=== PATIENT | female | born 1950 | race Caucasian/White ===

== ENCOUNTER 2016-07-30 23:10 | Emergency (ER) | payer OTHER ==
[~2016-07-30] VITALS: Ht 165.1 cm; Wt 77.0 kg
[2016-07-30 23:15] VITALS: BP 163/96; PULSE 68; RESP 18; TEMP 97.9; O2SAT 97
[2016-07-30] MEDS ORDERED: diphenhydrAMINE HCL 50 MG/ML VIAL IV PUSH ONE (23:45)
[2016-07-30] MEDS ORDERED: SODIUM CHLOR 0.9% 1000 ML INJ 1,000 ML IV ONE (23:45)
[2016-07-30] MEDS ORDERED: KETOROLAC TROMETHAMINE 30 MG/ML (IVP) VIAL IV PUSH ONE (23:45)
[2016-07-30] MEDS ORDERED: PROCHLORPERAZINE INJ 10 MG/2 ML VIAL IV PUSH ONE (23:45)
[2016-07-31] MEDS ORDERED: ATEN25TA PO (00:11)
[2016-07-31] MEDS ORDERED: COLE1TAB2 PO (00:11)
[2016-07-31] MEDS ORDERED: TIZA4CAP3 PO (00:11)
[2016-07-31] MEDS ORDERED: GABA800T PO (00:11)
[2016-07-31] MEDS ORDERED: RIZA10TA2 PO (00:11)
[2016-07-31] MEDS ORDERED: LISI-515 PO (00:11)
--- NOTE | 2016-07-31 01:41 | PD ---
HPI Chief Complaint: Headache Time Seen by Provider: 23:35 Travel History International Travel<30 days: No Contact w/Intl Traveler<30days: No Traveled to known affect area: No History of Present Illness HPI Patient is a 65-year-old female comes in complaining of a migraine headache. She says she has history of migraines and was recently started on any new medication that is not helping. She says the pain started this afternoon around 1 PM. She says it is located on the left side of her head. She says this pain is similar to previous headaches. She denies any head injuries. She denies any blurred vision. She denies nausea or vomiting. She denies fever or chills. PFSH Past Medical History Cardiovascular Problems: Yes (HTN) Diabetes: Yes (Diet controlled) Patient Takes Glucophage: No Influenza Vaccination: Yes Past Surgical History Appendectomy: Yes Cholecystectomy: Yes Hysterectomy: Yes Tonsillectomy: Yes Social History Alcohol Use: Yes (social) Tobacco Use: No Substance Use: No Allergies-Medications (Allergen,Severity, Reaction): Coded Allergies: No Known Allergies (Unverified , 07/31/16) Reported Meds & Prescriptions Reported Meds & Active Scripts Active Reported Rizatriptan (Rizatriptan Benzoate) 10 Mg Tab 10 Mg PO DAILY Gabapentin 800 Mg Tab 800 Mg PO DAILY Tizanidine (Tizanidine HCl) 4 Mg Cap 4 Mg PO DAILY Colestipol (Colestipol HCl) 1 Gm Tab 1 Gm PO DAILY Lisinopril 20 Mg Tab 20 Mg PO DAILY Atenolol 25 Mg Tab 25 Mg PO BID Review of Systems Except as stated in HPI: all other systems reviewed are Neg General / Constitutional: No: Fever, Chills Eyes: No: Blurred Vision HENT: Positive: Headaches Cardiovascular: No: Chest Pain or Discomfort Respiratory: No: Shortness of Breath Gastrointestinal: No: Nausea, Vomiting Musculoskeletal: No: Myalgias Skin: No Rash, No Change in Pigmentation Neurologic: No: Weakness, Dizziness Physical Exam Narrative GENERAL: Awake and alert, in no acute distress. SKIN: Focused skin assessment warm/dry. HEAD: Atraumatic. Normocephalic. EYES: Pupils equal and round. No scleral icterus. Extraocular movements intact. ENT: Mucous membranes pink and moist. NECK: Trachea midline. No JVD. CARDIOVASCULAR: Regular rate and rhythm. No murmur appreciated. RESPIRATORY: No accessory muscle use. Clear to auscultation. Breath sounds equal bilaterally. MUSCULOSKELETAL: No obvious deformities. No clubbing. No cyanosis. No edema. NEUROLOGICAL: Awake and alert. No obvious cranial nerve deficits. Motor grossly within normal limits. Normal speech. PSYCHIATRIC: Appropriate mood and affect; insight and judgment normal. Data Data Last Documented VS Vital Signs Date Time Temp Pulse Resp B/P Pulse Ox O2 Delivery O2 Flow Rate FiO2 07/31/16 01:17 18 07/31/16 00:01 97 Room Air 07/30/16 23:15 97.9 68 163/96 Orders Iv Access Insert/Monitor (07/30/16 23:40) Sodium Chlor 0.9% 1000 Ml Inj (Ns 1000 M (07/30/16 23:45) Prochlorperazine Inj (Compazine Inj) (07/30/16 23:45) Diphenhydramine Inj (Benadryl Inj) (07/30/16 23:45) Ketorolac Inj (Toradol Inj) (07/30/16 23:45) MDM Medical Decision Making Medical Screen Exam Complete: Yes Emergency Medical Condition: Yes Differential Diagnosis Migraine headache versus tension headache versus dehydration Narrative Course Patient is a 65-year-old female comes in complaining of a migraine headache. Exam shows no neurologic abnormalities. IV established, patient given IV fluids , Toradol, Compazine, Benadryl. She reports resolution of her headache. Advised drink plenty of fluids at home. Advised to take Tylenol or ibuprofen as needed for pain. Advised follow-up with her doctors. Advised to return to the ED as needed for any worsening symptoms. Diagnosis Primary Impression: Headache Qualified Code: R51 - Acute nonintractable headache, unspecified headache type Patient Instructions: Acute Headache (ED), General Instructions Additional Instructions: Take Tylenol or Ibuprofen as needed for pain. Drink plenty of fluids. Follow up with your doctors. Return to the ED as needed for any worsening symptoms. Disposition: 01 DISCHARGE HOME Condition: Stable Amanda Cruz MD July 31, 2016 01:41
[2016-07-31 01:45] VITALS: BP 148/84; PULSE 68; RESP 18; O2SAT 98
== END 2016-07-31 02:45 | disposition home or self-care (01) ==
LOC: PHED 23:10
DX: R51 Headache (principal); I10 Essential (primary) hypertension; E11.9 Type 2 diabetes mellitus without complications; Z79.899 Other long term (current) drug therapy
CPT/HCPCS: 96361; 96374; 96375; 99283; J0780; J1200; J1885; J7030

== ENCOUNTER 2017-11-26 23:02 | Inpatient (IN) ==
--- NOTE | 2017-11-26 23:42 | ED ---
HPI General Chief complaint: Headache Stated complaint: Headache/Elevated BP Time Seen by Provider: 11/26/17 23:13 Source: patient, EMS, RN notes reviewed and old records reviewed Mode of arrival: EMS History of Present Illness HPI narrative: 67yF presenting with headache and elevated BP. The patient states that she tripped and fell on 11/05, hit her head, was seen in the ED and had a negative CT scan, and reports that her headache initially went away but has returned over the past 1-2 days. She describes "aching" pain to the right parietal region which is constant, moderate, not made better or worse by anything. 2 weeks ago she was also switched from atenolol and lisinopril to atenolol and losartan/ HCTZ due to cough; she says that earlier today she had "shaking in my feet which went up my legs and my hands were shaking too" so she checked her BP and found it to be over 200 systolic. Denies confusion, blurred vision, chest pain, palpitations, or weakness. Related Data Home Medications Medication Instructions Recorded Confirmed aspirin [Aspir-81] 81 mg PO DAILY 11/05/17 11/26/17 atenolol 25 mg PO HS 11/05/17 11/26/17 colestipol 1 g PO DAILY 11/05/17 11/26/17 gabapentin 800 mg PO HS 11/05/17 11/26/17 tizanidine 4 mg PO HS 11/05/17 11/26/17 acetaminophen-codeine 1 tab PO TID PRN 11/26/17 11/26/17 divalproex 250 mg PO BID 11/26/17 11/26/17 sertraline 100 mg PO DAILY 11/26/17 11/26/17 Allergies Allergy/AdvReac Type Severity Reaction Status Date / Time cortisone Allergy Unknown Muscle Pain Verified 11/26/17 23:19 Review of Systems ROS: all other systems reviewed are negative Constitutional Denies fever(s) and Reports headache(s) Eyes Denies blurry vision ENT Denies nasal congestion Cardiovascular Denies chest pain Respiratory Denies cough Gastrointestinal Denies nausea Genitourinary Denies dysuria Musculoskeletal Denies back pain Neurologic Denies confusion Psychiatric Denies confusion PMFSH History History Provided By: Patient Medical History Medical History Age related osteoporosis (Acute) Fibromyalgia (Acute) H/O: hysterectomy (Acute) Migraine (Acute) Neuropathy (Acute) Osteoarthritis (Acute) Peptic ulcer (Acute) Surgical History Surgical History H/O lumpectomy (Acute) Hx of appendectomy (Acute) Hx of cholecystectomy (Acute) Hx of tonsillectomy (Acute) Immunization History Tetanus Immunization: Unsure Hx Influenza Vaccine This Season: No Exam Const General: healthy appearing and no acute distress HENWA Head: normocephalic and atraumatic Face and sinus: normal facial exam Eyes General: appearance normal, both eyes and all related structures Pupils: PERRL Chest Chest: normal inspection of the chest Resp Effort & Inspection: normal respiratory effort Auscultation: no rhonchi and no wheezes Cardio Rate: regular rate Rhythm: regular rhythm Other: BP 140 systolic GI Inspection: non-distended Palpation: soft and nontender Skin General: no rashes or lesions noted Neuro General: alert, awake, oriented x3 and no focal motor deficits Other: GCS 15, pupils 3 mm and reactive bilaterally, speech clear and fluent, no slurred speech or aphasia, no tremor, motor strength and sensation intact to all extremities Psych Affect: normal affect Course Initial Documented Vital Signs Temperature 98 F 11/26/17 23:20 Pulse Rate 81 11/26/17 23:20 Respiratory Rate 18 11/26/17 23:20 Blood Pressure 158/84 H 11/26/17 23:20 Pulse Oximetry 98 11/26/17 23:20 Last Documented Vital Signs Temperature 98 F 11/26/17 23:20 Pulse Rate 81 11/26/17 23:20 Respiratory Rate 18 11/26/17 23:20 Blood Pressure 158/84 H 11/26/17 23:20 Pulse Oximetry 98 11/26/17 23:20 Medical Decision Making MDM Narrative Medical decision making narrative: Assessment: 67yF presenting with headache and elevated BP Plan: EKG Labs CTH Addendum: Patient found to have severe hypokalemia, likely related to recently being started on HCTZ. She will need multiple IV and PO repletions and recheck of lytes; she will also need cardiac monitoring as her electrolyte abnormalities put her at higher risk for arrhythmia. Patient understands and agrees with plan. Case discussed with Dr. Perez of [facility]. Medical Screen Exam Complete: Yes Emergency Medical Condition: Yes Differential Diagnosis Differential Diagnosis: Differential diagnosis includes, but is not limited to: hypertensive urgency, electrolyte abnormality, ICH, closed head injury, post- concussive syndrome Lab Data Result diagrams: 11/26/17 23:55 11/26/17 23:55 Lab Results 11/26/17 11/26/17 Range/Units 23:55 23:55 WBC 6.9 (4.0-11.0) th/mm3 RBC 4.77 (4.00-5.30) mil/mm3 Hgb 14.8 (11.6-15.3) gm/dL Hct 42.5 (35.0-46.0) % MCV 89.0 (80.0-100.0) fL MCH 31.1 (27.0-34.0) pg MCHC 34.9 (32.0-36.0) % RDW 13.8 (11.6-17.2) % Plt Count 263 (150-450) th/mm3 MPV 9.5 (7.0-11.0) fL Neut % (Auto) 47.3 (16.0-70.0) % Lymph % (Auto) 42.0 (9.0-44.0) % [place] % (Auto) 8.7 H (0.0-8.0) % Eos % (Auto) 1.2 (0.0-4.0) % Baso % (Auto) 0.8 (0.0-2.0) % Neut # (Auto) 3.3 (1.8-7.7) th/mm3 Lymph # (Auto) 2.9 (1.0-4.8) th/mm3 [place] # (Auto) 0.6 (0.0-0.9) th/mm3 Eos # (Auto) 0.1 (0.0-0.4) th/mm3 Baso # (Auto) 0.1 (0.0-0.2) th/mm3 WBC Differential . Differential Comment Auto diff final Sodium 138 (136-145) meq/L Potassium 2.8 L* (3.5-5.1) meq/L Chloride 98 (98-107) meq/L Carbon Dioxide 29.6 (21.0-32.0) meq/L Anion Gap 10 (5-15) meq/L BUN 15 (7-18) mg/dL Creatinine 0.90 (0.50-1.00) mg/dL Estimated GFR 62 L (>89) mL/min Random Glucose 116 H (74-106) mg/dL Calcium 9.7 (8.5-10.1) mg/dL Magnesium 1.9 (1.5-2.5) mg/dL Total Bilirubin 0.5 (0.2-1.0) mg/dL AST 26 (15-37) U/L ALT 27 (10-53) U/L Alkaline Phosphatase 66 (45-117) U/L Total Protein 8.1 (6.4-8.2) g/dL Albumin 4.3 (3.4-5.0) g/dL Discharge Plan Discharge Disposition Patient Disposition: 30 Still Patient Discharge Condition Condition: Stable Discharge Details Diagnosis: Acute hypokalemia Physicians Team ED Provider: Nikki Holden Primary Care Provider: Migue Morgan V Rxs /Orders / Referrals /Forms Prescriptions: No Action atenolol 25 mg Tablet 25 mg PO HS RF: 0 aspirin [Aspir-81] 81 mg Tablet,Delayed Release (Dr/Ec) 81 mg PO DAILY RF: 0 gabapentin 800 mg Tablet 800 mg PO HS RF: 0 colestipol 1 gram Tablet 1 g PO DAILY RF: 0 tizanidine 4 mg Capsule 4 mg PO HS RF: 0 divalproex 250 mg Tablet,Delayed Release (Dr/Ec) 250 mg PO BID RF: 0 sertraline 100 mg Tablet 100 mg PO DAILY RF: 0 acetaminophen-codeine 300-30 mg Tablet 1 tab PO TID PRN (Reason: Pain) RF: 0 Status ED Status: With Doctor
[2017-11-27 00:11] LABS: Baso # (Auto) 0.1 th/mm3 (0.0-0.2); Baso % (Auto) 0.8 % (0.0-2.0); Eos # (Auto) 0.1 th/mm3 (0.0-0.4); Eos % (Auto) 1.2 % (0.0-4.0); Hematocrit 42.5 % (35.0-46.0); Hemoglobin 14.8 gm/dL (11.6-15.3); Lymph # (Auto) 2.9 th/mm3 (1.0-4.8); Mean Corpuscular HGB Conc 34.9 % (32.0-36.0); Mean Corpuscular Hemoglobin 31.1 pg (27.0-34.0); Mean Platelet Volume 9.5 fL (7.0-11.0); Mono # (Auto) 0.6 th/mm3 (0.0-0.9); Mono % (Auto) 8.7 % (0.0-8.0); Neut # (Auto) 3.3 th/mm3 (1.8-7.7); Neut % (Auto) 47.3 % (16.0-70.0); Platelet Count 263 th/mm3 (150-450); Red Blood Count 4.77 mil/mm3 (4.00-5.30); Red Cell Distribution Width 13.8 % (11.6-17.2); White Blood Count 6.9 th/mm3 (4.0-11.0)
[2017-11-27 00:26] LABS: Alanine Aminotransferase 27 U/L (10-53); Albumin 4.3 g/dL (3.4-5.0); Alkaline Phosphatase 66 U/L (45-117); Anion Gap 10 meq/L (5-15); Aspartate Aminotransferase 26 U/L (15-37); Blood Urea Nitrogen 15 mg/dL (7-18); Calcium 9.7 mg/dL (8.5-10.1); Carbon Dioxide 29.6 meq/L (21.0-32.0); Chloride 98 meq/L (98-107); Glomerular Filtration Rate 62 mL/min (>89); Glucose,Random 116 mg/dL (74-106); Magnesium 1.9 mg/dL (1.5-2.5); Sodium 138 meq/L (136-145); Total Protein 8.1 g/dL (6.4-8.2)
[2017-11-27 00:29] LABS: Potassium 2.8 meq/L (3.5-5.1)
[2017-11-27] MEDS ORDERED: Mag Sulf 1 gm/100 ml Premix 100 ML IV.SIG ONE (00:35)
--- NOTE | 2017-11-27 01:12 | CT ---
EXAM DATE: 11/27/2017 12:50 AM EDT AGE/SEX: 67 years / Female INDICATIONS: Trauma; head injury 2 weeks ago. CLINICAL DATA: This is the patient's initial encounter. Patient reports that signs and symptoms have been present for 4 - 6 days and indicates a pain score of 6/10. MEDICAL/SURGICAL HISTORY: . Fibromyalgia. Appendectomy. Cholecystectomy. Tonsillectomy. Lumpec rita. RADIATION DOSE: 56.35 CTDI (mGy) COMPARISON: [facility], CT HEAD W/O CONTRAST, 11/05/2017. . TECHNIQUE: CT of the head without contrast. Using automated exposure control and adjustment of the mA and/or kV according to patient size, radiation dose was kept as low as reasonably achievable to ob tain optimal diagnostic quality images. DICOM format image data is available electronically for revi ew and comparison. FINDINGS: Cerebrum: The ventricles are normal for age. No evidence of midline shift, mass lesion, hemorrhage or acute infarction. No extraaxial fluid collections are seen. Posterior Fossa: The cerebellum and brainstem are intact. The 4th ventricle is midline. The cerebe llopontine angle is unremarkable. Extracranial: The visualized portion of the orbits is intact. Skull: The calvaria is intact. No evidence of skull fracture. CONCLUSION: 1. Negative CT Head non contrast. . Electronically signed by: Ze Mendoza MD 11/27/2017 1:11 AM EDT
--- NOTE | 2017-11-27 01:51 | P.HP ---
History of Present Illness Service: [facility] Primary Care Physician: Migue Morgan MD History of Present Illness: 67-year-old female with a past medical history significant for fibromyalgia, neuropathy, chronic back pain, hypertension, hyperlipidemia, and diet- controlled diabetes mellitus presents the emergency department for evaluation of headache and elevated blood pressure. She also describes generalized shaking. Patient reports that she tripped and fell on 11/05, hit her head and was seen in the ED at that time. She had a negative head CT and reports that her headache initially went away but has returned over the past 1-2 days. She also reports that 2 weeks ago her blood pressure medications were switched and hydrochlorothiazide was added. She was not started on potassium supplementation at that time. She denies any chest pain or shortness of breath. No abdominal pain. No nausea/vomiting/or/chills. No lateralizing signs/symptoms Review of Systems All other systems reviewed negative except as stated in HPI [facility] - History History Provided By: Patient - Medical History Medical History: Medical History (Last Updated 11/27/17 @ 01:48 by Felisha Perez MD) Chronic back pain Hx pulmonary embolism Hyperlipidemia Hypertension Age related osteoporosis Fibromyalgia H/O: hysterectomy Migraine Neuropathy Osteoarthritis Peptic ulcer - Surgical History Surgical History: Surgical History (Last Reviewed 11/26/17 @ 23:44 by Nikki Holden DO) H/O lumpectomy Hx of appendectomy Hx of cholecystectomy Hx of tonsillectomy - Family History Family History: Family History (Last Updated 11/27/17 @ 01:48 by Felisha Perez MD) Other Coronary artery disease Diabetes mellitus - Tobacco History Second Hand Smoke Exposure: No Tobacco Use In Past 30 Days: No Smoking Status: Never smoker - Alcohol History How Often Do You Have a Drink Containing Alcohol: Never - Substance Use History Substance History: No History of Abuse - Travel History Recent Travel in the [place] Within the Last 8 Weeks: No Recent Travel Out of the Country Within the Last 8 Weeks: No - Immunization History Tetanus Immunization: Unsure Hx Influenza Vaccine This Season: No Medications and Allergies Active Medications: Active Medications Potassium Chloride (Kcl 20 Meq Premix Inj) 20 meq in 100 mls @ 50 mls/hr IV.SIG Q2H IGOR Stop: 11/27/17 04:44 Allergies Allergy/AdvReac Type Severity Reaction Status Date / Time cortisone Allergy Unknown Muscle Pain Verified 11/26/17 23:19 Home Medications Medication Instructions Recorded Confirmed Type aspirin [Aspir-81] 81 mg PO DAILY 11/05/17 11/26/17 History atenolol 25 mg PO HS 11/05/17 11/26/17 History colestipol 1 g PO DAILY 11/05/17 11/26/17 History gabapentin 800 mg PO HS 11/05/17 11/26/17 History tizanidine 4 mg PO HS 11/05/17 11/26/17 History acetaminophen-codeine 1 tab PO TID PRN 11/26/17 11/26/17 History divalproex 250 mg PO BID 11/26/17 11/26/17 History sertraline 100 mg PO DAILY 11/26/17 11/26/17 History Exam Vital signs: Vital Signs 11/26/17 23:20 Temperature 98 F Pulse Rate 81 Respiratory Rate 18 Blood Pressure 158/84 H Pulse Oximetry 98 Intake & Output 11/26/17 11/26/17 11/27/17 06:59 18:59 06:59 Weight 65.771 kg Narrative: Gen.: No acute distress Head: Normocephalic. Atraumatic. EENT: Pupils equal round and reactive to light. Nose without drainage. Airway intact. Throat without injection. Cardiovascular: Regular rate and rhythm. No murmurs, rubs or gallops. Respiratory: Lungs clear to auscultation bilaterally. No wheezes or rhonchi. Abdomen: Soft, nontender, nondistended. No peritoneal signs. Musculoskeletal: No gross deformities. No edema. Skin: No obvious rashes or erythema. Neuro: Sensory and motor grossly intact. Cranial nerves II through XII grossly intact. Results - Labs CBC & Chem 7: 11/26/17 23:55 11/26/17 23:55 Labs: Laboratory Results - last 24 hr 11/26/17 11/26/17 23:55 23:55 WBC 6.9 RBC 4.77 Hgb 14.8 Hct 42.5 MCV 89.0 MCH 31.1 MCHC 34.9 RDW 13.8 Plt Count 263 MPV 9.5 Neut % (Auto) 47.3 Lymph % (Auto) 42.0 [place] % (Auto) 8.7 H Eos % (Auto) 1.2 Baso % (Auto) 0.8 Neut # (Auto) 3.3 Lymph # (Auto) 2.9 [place] # (Auto) 0.6 Eos # (Auto) 0.1 Baso # (Auto) 0.1 WBC Differential . Differential Comment Auto diff final Sodium 138 Potassium 2.8 L* Chloride 98 Carbon Dioxide 29.6 Anion Gap 10 BUN 15 Creatinine 0.90 Estimated GFR 62 L Random Glucose 116 H Calcium 9.7 Magnesium 1.9 Total Bilirubin 0.5 AST 26 ALT 27 Alkaline Phosphatase 66 Total Protein 8.1 Albumin 4.3 - Imaging Impressions Head CT 11/27/17 00:02 CONCLUSION: 1. Negative CT Head non contrast. . Caprini VTE Risk Assessment Caprini VTE Risk Assessment: Moderate/High Risk (score >= 2) Caprini Risk Assessment Model: Point Value = 1 Point Value = 2 Point Value = 3 Point Value = 5 Age 41-60 Minor surgery BMI > 25 kg/m2 Swollen legs Varicose veins or History of unexplained or recurrent spontaneous Oral contraceptives or hormone replacement Sepsis (< 1 month) Serious lung disease, including pneumonia (< 1 month) Abnormal pulmonary function Acute myocardial infarction Congestive heart failure (< 1 month) History of inflammatory bowel disease Medical patient at bed rest Age 61-74 Arthroscopic surgery Major open surgery (> 45 min) Laparoscopic surgery (> 45 min) Malignancy Confined to bed (> 72 hours) Immobilizing plaster cast Central venous access Age >= 75 History of VTE Family history of VTE Factor V Leiden Prothrombin [id number] Lupus anticoagulant Anticardiolipin antibodies Elevated serum homocysteine Heparin-induced thrombocytopenia Other congenital or acquired thrombophilia Stroke (< 1 month) Elective arthroplasty Hip, pelvis, or leg fracture Acute spinal cord injury (< 1 month) Prophylaxis Regimen: Total Risk Factor Score Risk Level Prophylaxis Regimen 0-1 Low Early ambulation 2 Moderate Order ONE of the following: *Sequential Compression Device (SCD) *Heparin 5000 units SQ BID 3-4 Higher Order ONE of the following medications: *Heparin 5000 units SQ TID *Enoxaparin/Lovenox 40 mg SQ daily (WT < 150 kg, CrCl > 30 mL/min) *Enoxaparin/Lovenox 30 mg SQ daily (WT < 150 kg, CrCl > 10-29 mL/min) *Enoxaparin/Lovenox 30 mg SQ BID (WT < 150 kg, CrCl > 30 mL/min) AND/OR *Sequential Compression Device (SCD) 5 or more Highest Order ONE of the following medications: *Heparin 5000 units SQ TID (Preferred with Epidurals) *Enoxaparin/Lovenox 40 mg SQ daily (WT < 150 kg, CrCl > 30 mL/min) *Enoxaparin/Lovenox 30 mg SQ daily (WT < 150 kg, CrCl > 10-29 mL/min) *Enoxaparin/Lovenox 30 mg SQ BID (WT < 150 kg, CrCl > 30 mL/min) AND *Sequential Compression Device (SCD) Assessment and Plan - Plan Assessment/plan: 1. Hypokalemia Status post IV magnesium and IV/p.o. potassium Repeat BMP in the morning Anticipate discharge after BMP 2. Hypertension/hyperlipidemia Continue home medications once reconciled 3. Diet-controlled diabetes mellitus Monitor blood glucose FEN Diabetic diet Electrolytes: As above Heparin
[2017-11-27] MEDS: Potassium Chlor 20 mEq Premix 20 MEQ/100 ML PIGGYBACK IV.SIG SCH ×2 (02:44→04:40)
[2017-11-27] MEDS: Heparin - SQ 10,000 UNITS/ML Vial SQ SCH ×2 (06:17→13:26)
[2017-11-27 07:55] LABS: Carbon Dioxide 26.3 meq/L (21.0-32.0); Potassium 3.8 meq/L (3.5-5.1)
[2017-11-27] MEDS ORDERED: Sertraline 100 MG Tablet PO SCH (09:00)
[2017-11-27] MEDS ORDERED: Divalproex 250 MG DR Tablet PO SCH (09:00)
[2017-11-27] MEDS ORDERED: COLESTIPOL 1 GM PO SCH (09:00)
--- NOTE | 2017-11-27 14:07 | P.PNADD ---
Addendum to Inpatient Note Reason for Addendum: Additional Documentation Additional information: Nursing denies any deterioration since last night. Patient herself feels much better now. Does not have the tremoring anymore. Vital signs are stable Heart sounds regular rate and rhythm, no murmurs Clear lungs bilaterally, unlabored breathing 5/5 proximal upper and lower extremity strength except for the right lower extremity which is being slightly inhibited secondary to a torn meniscus per The patient. We will discharge her on losartan only with atenolol, to stop her combo hctz/ losartan. To f/u with PCP on BP and K+ level. Patient has met maximal benefit from hospitalization is clinically stable for discharge.
[2017-11-27] MEDS ORDERED: Atenolol 25 MG Tablet PO SCH (21:00)
[2017-11-27] MEDS ORDERED: Gabapentin 400 MG Capsule PO SCH (21:00)
== END 2017-11-27 15:30 | disposition home or self-care (01) ==
LOC: NEDA 23:02 → NEPE 23:02 → NEPHCDU 11-27 02:55
PROVIDERS: ADMIT Hospitalist; ATTEND Hospitalist

== ENCOUNTER 2018-01-02 17:40 | Observation (INO) ==
--- NOTE | 2018-01-02 20:24 | XR ---
EXAM DATE: 01/02/2018 7:57 PM EDT AGE/SEX: 67 years / Female INDICATIONS: Chest pain. CLINICAL DATA: This is the patient's initial encounter. Patient reports that signs and symptoms have been present for 1 day and indicates a pain score of 2/10. MEDICAL/SURGICAL HISTORY: . Hypertension. Osteoporosis. Chronic back pain. Fibromyalgia. Hyperl ipidemia. Neuropathy. Osteoarthritis. Peptic ulcer . Hysterectomy. Appendectomy. Cholecystectomy. Lupe mpectomy. Tonsillectomy. COMPARISON: No prior exams available for comparison. FINDINGS: Left basilar atelectasis is noted. There is elevation of the right hemidiaphragm. The heart is top no rmal in size. The pulmonary vascular pattern is normal. The lungs are otherwise clear. CONCLUSION: 1. Left basilar atelectasis. 2. Elevation of the right hemidiaphragm. Electronically signed by: Garcia Duarte MD 01/02/2018 8:23 PM EDT
[2018-01-02 20:44] LABS: Baso # (Auto) 0.1 th/mm3 (0.0-0.2); Baso % (Auto) 0.9 % (0.0-2.0); Eos # (Auto) 0.1 th/mm3 (0.0-0.4); Eos % (Auto) 1.5 % (0.0-4.0); Lymph # (Auto) 2.3 th/mm3 (1.0-4.8); Lymph % (Auto) 35.7 % (9.0-44.0); Mean Corpuscular HGB Conc 33.3 % (32.0-36.0); Mean Corpuscular Hemoglobin 30.5 pg (27.0-34.0); Mean Corpuscular Volume 91.7 fL (80.0-100.0); Mean Platelet Volume 9.4 fL (7.0-11.0); Mono # (Auto) 0.3 th/mm3 (0.0-0.9); Mono % (Auto) 5.3 % (0.0-8.0); Neut # (Auto) 3.7 th/mm3 (1.8-7.7); Neut % (Auto) 56.6 % (16.0-70.0); Platelet Count 268 th/mm3 (150-450); Red Blood Count 4.58 mil/mm3 (4.00-5.30); Red Cell Distribution Width 14.1 % (11.6-17.2); White Blood Count 6.5 th/mm3 (4.0-11.0)
[2018-01-02 20:57] LABS: Alanine Aminotransferase 37 U/L (10-53); Albumin 3.9 g/dL (3.4-5.0); Anion Gap 10 meq/L (5-15); Aspartate Aminotransferase 27 U/L (15-37); Blood Urea Nitrogen 15 mg/dL (7-18); Calcium 9.3 mg/dL (8.5-10.1); Carbon Dioxide 24.6 meq/L (21.0-32.0); Chloride 105 meq/L (98-107); Glomerular Filtration Rate 74 mL/min (>89); Glucose,Random 97 mg/dL (74-106); Sodium 140 meq/L (136-145)
[2018-01-02 21:01] LABS: Alkaline Phosphatase 73 U/L (45-117); Total Protein 7.8 g/dL (6.4-8.2)
--- NOTE | 2018-01-02 21:04 | ED ---
HPI General Chief complaint: Medical Clearance Stated complaint: edema Time Seen by Provider: 01/02/18 18:46 Source: patient Mode of arrival: ambulatory Limitations: no limitations History of Present Illness HPI narrative: 67-year-old female came to the emergency room with history of bilateral leg swelling for past 2 weeks. Patient says that the swelling has progressively been worsening and hence she came to the ER. She has also been experiencing bilateral leg pains right more than the left. Upon asking patient says that she has been experiencing on and off chest pain which is more on the left side radiating to her axilla. Last episode was last night. No aggravating or relieving symptoms identified either for the chest pain or the leg pain. The leg pain is mostly in her calves. Patient has a past history of DVT in 1970s secondary to oral contraceptives. Patient is not on any blood thinners currently. Patient had a stress test 3 years ago which was within normal limits. There is a strong family history of coronary artery disease. Patient currently is chest pain-free. Vital signs are stable. She bought compression stockings for her legs. She has been keeping her legs elevated. Onset (ago): week(s) (2) Location: chest and lower extremity Pain Consistency: intermittent Relieving factors: none Exacerbating factors: none Related Data Home Medications Medication Instructions Recorded Confirmed aspirin [Aspir-81] 81 mg PO DAILY 11/05/17 01/02/18 atenolol 50 mg PO HS 11/05/17 01/03/18 colestipol 1 g PO DAILY 11/05/17 01/02/18 gabapentin 800 mg PO HS 11/05/17 01/02/18 tizanidine 4 mg PO HS 11/05/17 01/02/18 acetaminophen-codeine 1 tab PO TID PRN 11/26/17 01/02/18 sertraline 100 mg PO DAILY 11/26/17 01/02/18 irbesartan-hydrochlorothiazide 1 tab PO DAILY 01/03/18 01/03/18 Previous Rx's Medication Instructions Recorded rivaroxaban [Xarelto] See Label Instructions .ROUTE 01/03/18 .COMPLEX #1 dosepack Allergies Allergy/AdvReac Type Severity Reaction Status Date / Time cortisone Allergy Unknown Muscle Pain Verified 12/09/17 22:39 Review of Systems ROS: all other systems reviewed are negative Cardiovascular Reports chest pain Musculoskeletal Reports system reviewed and no additional complaints, except as docu [facility] Medical History Medical History Chronic back pain (Acute) Hx pulmonary embolism (Acute) Hyperlipidemia (Acute) Hypertension (Acute) H/O: hysterectomy (Acute) Migraine (Acute) Age related osteoporosis (Acute) Fibromyalgia (Acute) Neuropathy (Acute) Osteoarthritis (Acute) Peptic ulcer (Acute) Surgical History Surgical History H/O lumpectomy (Acute) Hx of tonsillectomy (Acute) Hx of cholecystectomy (Acute) Hx of appendectomy (Acute) Family History Family History Other Coronary artery disease Diabetes mellitus Immunization History Tetanus Immunization: <5 Years Exam Narrative Exam Narrative: GENERAL: Awake, alert, no obvious distress. SKIN: Focused skin assessment warm/dry. HEAD: Atraumatic. Normocephalic. EYES: Pupils equal and round. No scleral icterus. No injection or drainage. ENT: No nasal bleeding or discharge. Mucous membranes pink and moist. NECK: Trachea midline. No JVD. CARDIOVASCULAR: Regular rate and rhythm. No murmur appreciated. RESPIRATORY: No accessory muscle use. Clear to auscultation. Breath sounds equal bilaterally. GASTROINTESTINAL: Abdomen soft, non-tender, nondistended. Hepatic and splenic margins not palpable. MUSCULOSKELETAL: No obvious deformities. No clubbing. No cyanosis. 2+ edema. NEUROLOGICAL: Awake and alert. No obvious cranial nerve deficits. Motor grossly within normal limits. Normal speech. PSYCHIATRIC: Appropriate mood and affect; insight and judgment normal. Course Initial Documented Vital Signs Temperature 98.5 F 01/02/18 17:48 Pulse Rate 75 01/02/18 17:48 Respiratory Rate 16 01/02/18 17:48 Blood Pressure 173/82 H 01/02/18 17:48 Pulse Oximetry 96 01/02/18 17:48 Last Documented Vital Signs Temperature 98.4 F 01/03/18 15:27 Pulse Rate 86 01/03/18 15:27 Respiratory Rate 16 01/03/18 15:27 Blood Pressure 158/94 H 01/03/18 15:27 Pulse Oximetry 95 01/03/18 08:00 Medical Decision Making [facility] Narrative Medical decision making narrative: 9:02 PM awaiting for the blood test result. I have ordered ultrasound for bilateral lower extremities to rule out DVT since patient has a significant history of DVT and PE in the past. Patient told me that she had a bad reaction to the diuretic in the past with her potassium going down to 2.0. Based on this I have not given her any diuretics at this point for her edema. However for the intermittent chest pain and risk factors I will admit her to the chest pain center if the DVT workup is negative. This has been explained to the patient and she understands. 10:59 PM blood test results are back and within normal limit. Ultrasound shows a right popliteal nonocclusive thrombus. I have ordered CT pulmonary angiogram given her chest pain history. Patient has been updated about the condition, test results and the plan. 12:[address] pulmonary angiogram does not show any PE. Patient has been admitted to the chest pain center to rule out ACS given her risk factors. Patient has been started on Xarelto. Medical Screen Exam Complete: Yes Emergency Medical Condition: Yes Differential Diagnosis Differential Diagnosis: DVT, PE, ACS Lab Data Result diagrams: 01/02/18 20:00 01/02/18 20:00 Lab Results 01/02/18 01/02/18 01/03/18 Range/Units 20:00 20:00 01:24 WBC 6.5 (4.0-11.0) th/mm3 RBC 4.58 (4.00-5.30) mil/mm3 Hgb 14.0 (11.6-15.3) gm/dL Hct 42.0 (35.0-46.0) % MCV 91.7 (80.0-100.0) fL MCH 30.5 (27.0-34.0) pg MCHC 33.3 (32.0-36.0) % RDW 14.1 (11.6-17.2) % Plt Count 268 (150-450) th/mm3 MPV 9.4 (7.0-11.0) fL Neut % (Auto) 56.6 (16.0-70.0) % Lymph % (Auto) 35.7 (9.0-44.0) % [place] % (Auto) 5.3 (0.0-8.0) % Eos % (Auto) 1.5 (0.0-4.0) % Baso % (Auto) 0.9 (0.0-2.0) % Neut # (Auto) 3.7 (1.8-7.7) th/mm3 Lymph # (Auto) 2.3 (1.0-4.8) th/mm3 [place] # (Auto) 0.3 (0.0-0.9) th/mm3 Eos # (Auto) 0.1 (0.0-0.4) th/mm3 Baso # (Auto) 0.1 (0.0-0.2) th/mm3 WBC Differential . Differential Comment Auto diff final Sodium 140 (136-145) meq/L Potassium 4.0 (3.5-5.1) meq/L Chloride 105 (98-107) meq/L Carbon Dioxide 24.6 (21.0-32.0) meq/L Anion Gap 10 (5-15) meq/L BUN 15 (7-18) mg/dL Creatinine 0.77 (0.50-1.00) mg/dL Estimated GFR 74 L (>89) mL/min Random Glucose 97 (74-106) mg/dL Calcium 9.3 (8.5-10.1) mg/dL Total Bilirubin 0.5 (0.2-1.0) mg/dL AST 27 (15-37) U/L ALT 37 (10-53) U/L Alkaline Phosphatase 73 (45-117) U/L Total Creatine Kinase 204 H (26-192) U/L CK-MB (CK-2) 4.5 H (0.5-3.6) ng/mL CK-MB (CK-2) % 2.2 (0.0-4.0) % Troponin I Less than 0.02 L Less than 0.02 L (0.02-0.05) ng/mL Total Protein 7.8 (6.4-8.2) g/dL Albumin 3.9 (3.4-5.0) g/dL 01/03/18 Range/Units 03:40 WBC (4.0-11.0) th/mm3 RBC (4.00-5.30) mil/mm3 Hgb (11.6-15.3) gm/dL Hct (35.0-46.0) % MCV (80.0-100.0) fL MCH (27.0-34.0) pg MCHC (32.0-36.0) % RDW (11.6-17.2) % Plt Count (150-450) th/mm3 MPV (7.0-11.0) fL Neut % (Auto) (16.0-70.0) % Lymph % (Auto) (9.0-44.0) % [place] % (Auto) (0.0-8.0) % Eos % (Auto) (0.0-4.0) % Baso % (Auto) (0.0-2.0) % Neut # (Auto) (1.8-7.7) th/mm3 Lymph # (Auto) (1.0-4.8) th/mm3 [place] # (Auto) (0.0-0.9) th/mm3 Eos # (Auto) (0.0-0.4) th/mm3 Baso # (Auto) (0.0-0.2) th/mm3 WBC Differential Differential Comment Sodium (136-145) meq/L Potassium (3.5-5.1) meq/L Chloride (98-107) meq/L Carbon Dioxide (21.0-32.0) meq/L Anion Gap (5-15) meq/L BUN (7-18) mg/dL Creatinine (0.50-1.00) mg/dL Estimated GFR (>89) mL/min Random Glucose (74-106) mg/dL Calcium (8.5-10.1) mg/dL Total Bilirubin (0.2-1.0) mg/dL AST (15-37) U/L ALT (10-53) U/L Alkaline Phosphatase (45-117) U/L Total Creatine Kinase 208 H (26-192) U/L CK-MB (CK-2) 4.2 H (0.5-3.6) ng/mL CK-MB (CK-2) % 2.0 (0.0-4.0) % Troponin I Less than 0.02 L (0.02-0.05) ng/mL Total Protein (6.4-8.2) g/dL Albumin (3.4-5.0) g/dL Imaging Data Radiologist's impression: Chest X-Ray 01/02/18 19:57 CONCLUSION: 1. Left basilar atelectasis. 2. Elevation of the right hemidiaphragm. Venous Doppler Study 01/02/18 19:58 CONCLUSION: 1. Nonocclusive thrombus within the right popliteal vein. Chest CTA 01/02/18 22:53 CONCLUSION: 1. Bibasilar patchy opacities could be atelectasis or infiltrates. 2. No evidence for pulmonary embolism. 3. Minimal coronary artery calcifications. Myocardial Perfusion Scan Nuc Med 01/03/18 00:00 CONCLUSION: 1. Negative examination. ECG Data Attestation: I personally reviewed and interpreted this ECG as follows: Interpretation: Twelve-lead EKG was reviewed by me. Normal sinus rhythm, normal axis, nonspecific ST-T wave changes. Heart rate of 58 bpm. Discharge Plan Discharge Disposition Patient Disposition: 30 Still Patient Discharge Condition Condition: Good Discharge Order Discharge Orders: Discharge Order (Routine); Ordered 01/03/18 Ordered By: Nikki Woodard Discharge Details Diagnosis: Atypical chest pain, Thrombosis of right popliteal vein Physicians Team ED Provider: Catherine Lai Primary Care Provider: Migue Morgan V Attending Provider: Melvin Garcia Status ED Status: Left Department Discharge Information Discharge Date/Time: 01/03/18 02:14
--- NOTE | 2018-01-02 21:07 | US ---
EXAM DATE: 01/02/2018 7:58 PM EDT AGE/SEX: 67 years / Female INDICATIONS: Bilateral leg swelling. CLINICAL DATA: This is the patient's initial encounter. Patient reports that signs and symptoms have been present for 4 - 6 days and indicates a pain score of 4/10. MEDICAL/SURGICAL HISTORY: Hypertension. Chronic back pain. Fibromyalgia. Hyperlipidemia. Migrai ne. Neuropathy. Ostearthritis. History of pulmonary embolism. Hysterectomy. Appendectomy. Cholecys tectomy. Lumpectomy. COMPARISON: [facility] [place] VENOUS DOPPLER LEG BI, 12/09/2017. . TECHNIQUE: Venous ultrasound of both lower extremities was performed from the inguinal ligament to t he proximal calf. Real-time, color Doppler and spectral tracing, compression and augmentation techni ques were used. FINDINGS: Right Leg: Nonocclusive thrombus is noted within the right popliteal vein. Normal color flow is note d within the right iliac, common femoral, superficial femoral, peroneal and posterior tibial veins. Left Leg: Normal compression of the deep venous system from the inguinal region to the proximal calf . No echogenic clot is seen. Normal response of the venous system to augmentation and respiration. Other: None. CONCLUSION: 1. Nonocclusive thrombus within the right popliteal vein. Electronically signed by: Garcia Duarte MD 01/02/2018 9:05 PM EDT
--- NOTE | 2018-01-02 23:38 | CT ---
EXAM DATE: 01/02/2018 11:09 PM EDT AGE/SEX: 67 years / Female INDICATIONS: Left sided chest pain, shortness of breath. CLINICAL DATA: This is the patient's initial encounter. Patient reports that signs and symptoms have been present for 1 day and indicates a pain score of 8/10. MEDICAL/SURGICAL HISTORY: Hypertension. Osteoporosis. Pulmonary Embolus. Peptic ulcer. Appendect karen. Cholecystectomy. Tonsillectomy. RADIATION DOSE: 10.37 CTDI (mGy) COMPARISON: No prior exams available for comparison. TECHNIQUE: Volumetric scanning was performed using a multi-row detector CT scanner during bolus infu hira of 72 ml Omnipaque 350 (iohexol) nonionic water-soluble contrast as a single exam dose. The ava a was post processed with a variety of visualization algorithms including full volume maximum intensi ty projection and sliding thin slab reformation. Using automated exposure control and adjustment of t he mA and/or kV according to patient size, radiation dose was kept as low as reasonably achievable to obtain optimal diagnostic quality images. DICOM format image data is available electronically for r eview and comparison. FINDINGS: Pulmonary Arteries: No filling defects are seen in the pulmonary arteries out to the subsegmental ve ssels. The left and right pulmonary arteries are normal in diameter. Lung: Patchy densities in the lower lobes. Effusion: None. Mediastinum: No evidence of mediastinal or hilar adenopathy. Minimal coronary artery calcifications. Other: The axilla is unremarkable. CONCLUSION: 1. Bibasilar patchy opacities could be atelectasis or infiltrates. 2. No evidence for pulmonary embolism. 3. Minimal coronary artery calcifications. Electronically signed by: Ebenezer Atkins MD 01/02/2018 11:37 PM EDT
[2018-01-03] MEDS ORDERED: Rivaroxaban 15 MG Tablet PO ONE (00:30)
[2018-01-03 01:51] LABS: Creatine Kinase 204 U/L (26-192)
[2018-01-03 02:03] LABS: CKMB Percent 2.2 % (0.0-4.0); Creatine Kinase MB 4.5 ng/mL (0.5-3.6)
[2018-01-03 04:04] LABS: Creatine Kinase 208 U/L (26-192)
[2018-01-03 04:16] LABS: Creatine Kinase MB 4.2 ng/mL (0.5-3.6)
[2018-01-03] MEDS: Acetaminophen 325 MG Tablet PO PRN ×2 (08:19→13:31)
[2018-01-03 08:54] VITALS: O2SAT 95
[2018-01-03] MEDS ORDERED: Sertraline 100 MG Tablet PO SCH (10:00)
--- NOTE | 2018-01-03 10:42 | P.HPCA ---
History of Present Illness Primary Care Physician: Migue Morgan MD Chief Complaint: Bilater lower leg edema History of Present Illness: 67 year old female with history of diabetes, hypertension, hyperlipidemia, fibromyalgia, and chronic back pain presents emergency room for further evaluation of persistent bilateral lower leg edema. Onset months. Progressively becoming worse. Also noted intermittent redness with a right foot "blister a couple days ago." Upon further discussion reports intermittent, nonexertional chest pain. Onset months. Location left anterior chest and left auxiliary area. Areas vary, not always occurring together. Characterized as quick, squeezing. No associated symptoms of nausea, vomiting, dyspnea, or diaphoresis. Duration seconds. No precipitation or relieving factors. Occurrence varies, rarely occurring more than once daily. No recent illness, injury, or illness. Past cardiac testing None Social history Known diabetes (diet controlled), hypertension, and hyperlipidemia. No known coronary artery disease. Lifelong non-smoker. No alcohol no recreational drug use. Single. Lives with a roommate. Requires use of cane or walker for ambulation. - Diagnosis (1) Atypical chest pain (2) Hyperlipidemia (3) Hypertension (4) Thrombosis of right popliteal vein PMFSH - History History Provided By: Patient - Medical History Medical History: Medical History (Last Reviewed 01/03/18 @ 10:43 by JOSIAH Novak) Chronic back pain (Acute) Hx pulmonary embolism (Acute) Hyperlipidemia (Chronic) Hypertension (Chronic) H/O: hysterectomy (Acute) Migraine (Acute) Age related osteoporosis Fibromyalgia Neuropathy Osteoarthritis Peptic ulcer - Surgical History Surgical History: Surgical History (Last Reviewed 01/03/18 @ 10:43 by JOSIAH Novak) H/O lumpectomy (Acute) Hx of tonsillectomy (Acute) Hx of cholecystectomy (Acute) Hx of appendectomy (Acute) - Family History Family History: Family History (Last Reviewed 01/02/18 @ 21:01 by Catherine Lai MD) Other Coronary artery disease Diabetes mellitus - Tobacco History Second Hand Smoke Exposure: No Tobacco Use In Past 30 Days: No Smoking Status: Never smoker - Alcohol History How Often Do You Have a Drink Containing Alcohol: Never - Substance Use History Substance History: No History of Abuse - Travel History Recent Travel in the [place] Within the Last 8 Weeks: No Recent Travel Out of the Country Within the Last 8 Weeks: No - Immunization History Tetanus Immunization: <5 Years Medications and Allergies Active Medications: Active Medications Acetaminophen (Tylenol) 650 mg PO Q4H PRN PRN Reason: HEADACHE Last Admin: 01/03/18 08:19 Dose: 650 mg Non-Formulary Medication (Irbesartan-Hydrochlorothiazide [Irbesartan- Hydrochlorothiazide]) 1 tab PO DAILY [facility] Sertraline HCl (Zoloft) 100 mg PO DAILY IGOR Sodium Chloride (Ns Flush) 2 ml IV.FLUSH UNSCH PRN PRN Reason: FLUSH AFTER USING IV ACCESS Sodium Chloride (Ns Flush) 2 ml IV.FLUSH BID IGOR Last Admin: 01/03/18 08:20 Dose: 2 ml Sodium Chloride (Ns Flush) 2 ml IV.FLUSH PRN PRN PRN Reason: FLUSH AFTER USING IV ACCESS Allergies Allergy/AdvReac Type Severity Reaction Status Date / Time cortisone Allergy Unknown Muscle Pain Verified 12/09/17 22:39 Home Medications Medication Instructions Recorded Confirmed Type aspirin [Aspir-81] 81 mg PO DAILY 11/05/17 01/02/18 History atenolol 50 mg PO HS 11/05/17 01/03/18 History colestipol 1 g PO DAILY 11/05/17 01/02/18 History gabapentin 800 mg PO HS 11/05/17 01/02/18 History tizanidine 4 mg PO HS 11/05/17 01/02/18 History acetaminophen-codeine 1 tab PO TID PRN 11/26/17 01/02/18 History sertraline 100 mg PO DAILY 11/26/17 01/02/18 History irbesartan-hydrochlorothiazide 1 tab PO DAILY 01/03/18 01/03/18 History Exam Vital signs: Vital Signs 01/02/18 17:48 01/02/18 19:10 01/02/18 20:21 Temperature 98.5 F Pulse Rate 75 68 Respiratory Rate 16 20 Blood Pressure 173/82 H 156/74 H Pulse Oximetry 96 96 96 01/02/18 23:00 01/03/18 02:17 01/03/18 03:44 Temperature 98.1 F 98.2 F Pulse Rate 62 72 54 L Respiratory Rate 20 18 16 Blood Pressure 137/75 164/95 H 150/78 H Pulse Oximetry 95 96 01/03/18 07:28 01/03/18 08:00 Temperature 98.0 F Pulse Rate 60 68 Respiratory Rate 16 Blood Pressure 173/79 H Pulse Oximetry 95 Intake & Output 01/02/18 01/03/18 01/03/18 18:59 06:59 18:59 Weight 81.647 kg 81.647 kg Other: # Voids 1 Date of Last Bowel Movement 01/02/18 Weight On Admission 81.647 kg Narrative: GENERAL: Alert WN, WD, NAD, pleasant, , overweight female HEAD: NC, AT EYES: Sclera clear, conjunctiva without injection, pupils equal and round ENT: Mucous membranes pink and moist, no nasal discharge or bleeding NECK: Supple, no masses, trachea midline CV: RRR, without murmur, rub, gallop, no JVD, S1-S2 no S3-S4. RESP: Clear lungs throughout bilateral, no crackles, wheeze, rhonchi, symmetrical chest rise, nonlabored, able to speak in full sentences ABD: Soft, NT, ND, no masses, positive bowel tones BACK: Scoliosis EXT: Pulses +1x4, +2 pitting bilateral lower extremity edema midcalf to bilateral feet, no open areas, bilateral venous statis MS: Normal tone x4 extremities, nontender, no obvious deformities, full range of motion NEURO: CN II through CN XII grossly intact, motor strength 5/5 PSYCH: A+O x3, pleasant affect, appropriate speech, appropriate mood and affect , insight and judgment SKIN: Normal turgor, normal texture, no lesions, no rashes, brisk cap refill, even hair distribution Results 01/02/18 20:00 01/02/18 20:00 Cardiac Enzymes 01/02/18 01/03/18 01/03/18 Range/Units 20:00 01:24 03:40 AST 27 (15-37) U/L CK-MB (CK-2) 4.5 H 4.2 H (0.5-3.6) ng/mL Troponin I Less than 0.02 L Less than 0.02 L Less than 0.02 L (0.02-0.05) ng/mL CBC 01/02/18 Range/Units 20:00 WBC 6.5 (4.0-11.0) th/mm3 RBC 4.58 (4.00-5.30) mil/mm3 Hgb 14.0 (11.6-15.3) gm/dL Hct 42.0 (35.0-46.0) % Plt Count 268 (150-450) th/mm3 Neut # (Auto) 3.7 (1.8-7.7) th/mm3 Lymph # (Auto) 2.3 (1.0-4.8) th/mm3 [place] # (Auto) 0.3 (0.0-0.9) th/mm3 Eos # (Auto) 0.1 (0.0-0.4) th/mm3 Baso # (Auto) 0.1 (0.0-0.2) th/mm3 Comprehensive Metabolic Panel 01/02/18 Range/Units 20:00 Sodium 140 (136-145) meq/L Potassium 4.0 (3.5-5.1) meq/L Chloride 105 (98-107) meq/L Carbon Dioxide 24.6 (21.0-32.0) meq/L BUN 15 (7-18) mg/dL Creatinine 0.77 (0.50-1.00) mg/dL Calcium 9.3 (8.5-10.1) mg/dL AST 27 (15-37) U/L ALT 37 (10-53) U/L Alkaline Phosphatase 73 (45-117) U/L Total Protein 7.8 (6.4-8.2) g/dL Albumin 3.9 (3.4-5.0) g/dL Intake and Output 01/02/18 01/03/18 01/03/18 22:59 06:59 14:59 Other: # Voids 1 Date of Last Bowel Movement 01/02/18 Weight 81.647 kg 81.647 kg Weight On Admission 81.647 kg - Imaging and Cardiology Imaging: Impressions Chest X-Ray 01/02/18 19:57 CONCLUSION: 1. Left basilar atelectasis. 2. Elevation of the right hemidiaphragm. Venous Doppler Study 01/02/18 19:58 CONCLUSION: 1. Nonocclusive thrombus within the right popliteal vein. Chest CTA 01/02/18 22:53 CONCLUSION: 1. Bibasilar patchy opacities could be atelectasis or infiltrates. 2. No evidence for pulmonary embolism. 3. Minimal coronary artery calcifications. EKG interpretations - EKG EKG results cardiology: sinus rhythm, normal axis, normal QRS, normal ST/T Caprini VTE Risk Assessment Caprini VTE Risk Assessment: Moderate/High Risk (score >= 2) Caprini Risk Assessment Model: Point Value = 1 Point Value = 2 Point Value = 3 Point Value = 5 Age 41-60 Minor surgery BMI > 25 kg/m2 Swollen legs Varicose veins or History of unexplained or recurrent spontaneous Oral contraceptives or hormone replacement Sepsis (< 1 month) Serious lung disease, including pneumonia (< 1 month) Abnormal pulmonary function Acute myocardial infarction Congestive heart failure (< 1 month) History of inflammatory bowel disease Medical patient at bed rest Age 61-74 Arthroscopic surgery Major open surgery (> 45 min) Laparoscopic surgery (> 45 min) Malignancy Confined to bed (> 72 hours) Immobilizing plaster cast Central venous access Age >= 75 History of VTE Family history of VTE Factor V Leiden Prothrombin [id number] Lupus anticoagulant Anticardiolipin antibodies Elevated serum homocysteine Heparin-induced thrombocytopenia Other congenital or acquired thrombophilia Stroke (< 1 month) Elective arthroplasty Hip, pelvis, or leg fracture Acute spinal cord injury (< 1 month) Prophylaxis Regimen: Total Risk Factor Score Risk Level Prophylaxis Regimen 0-1 Low Early ambulation 2 Moderate Order ONE of the following: *Sequential Compression Device (SCD) *Heparin 5000 units SQ BID 3-4 Higher Order ONE of the following medications: *Heparin 5000 units SQ TID *Enoxaparin/Lovenox 40 mg SQ daily (WT < 150 kg, CrCl > 30 mL/min) *Enoxaparin/Lovenox 30 mg SQ daily (WT < 150 kg, CrCl > 10-29 mL/min) *Enoxaparin/Lovenox 30 mg SQ BID (WT < 150 kg, CrCl > 30 mL/min) AND/OR *Sequential Compression Device (SCD) 5 or more Highest Order ONE of the following medications: *Heparin 5000 units SQ TID (Preferred with Epidurals) *Enoxaparin/Lovenox 40 mg SQ daily (WT < 150 kg, CrCl > 30 mL/min) *Enoxaparin/Lovenox 30 mg SQ daily (WT < 150 kg, CrCl > 10-29 mL/min) *Enoxaparin/Lovenox 30 mg SQ BID (WT < 150 kg, CrCl > 30 mL/min) AND *Sequential Compression Device (SCD) Assessment and Plan - Assessment (1) Atypical chest pain Code(s): R07.89 - Other chest pain Status: Acute Plan: Admitted chest pain center. ACS ruled out 3 sets of EKGs, cardiac enzymes, monitor on telemetry overnight. Will be seen and evaluated by Dr. Ranjan Li. Likely will proceed with likely scan due to multiple risk factors. Further disposition to follow. Patient agreeable to plan of care and verbalizes understanding. (2) Hyperlipidemia Code(s): E78.5 - Hyperlipidemia, unspecified Status: Chronic Plan: Continue atorvastatin once updated in electronic medical record. (3) Hypertension Code(s): I10 - Essential (primary) hypertension Status: Chronic Plan: Continue irbesartan/hctz. Continue to monitor. Follow-up with primary care provider. (4) Thrombosis of right popliteal vein Code(s): I82.431 - Acute embolism and thrombosis of right popliteal vein Status: Acute Plan: Nonocclusive thrombus rith popliteal vein. ER physician provider her with prescription of Xarelto. Follow up with primary care provider upon discharge. H&P: Quality - VTE Deep Vein Thrombosis/Pulmonary Embolism Present on Admission: Yes (3) Hypertension Qualifiers: Hypertension type: unspecified Qualified Code(s): I10 - Essential (primary) hypertension
--- NOTE | 2018-01-03 10:45 | P.PNCA ---
Subjective Interval history: 67-year-old lady presents with complaints of bilateral leg swelling which been progressing over several months she has a somewhat complex history which is reviewed in the HPI by the nurse practitioner. The patient was seen and examined by myself personally and then discussed with the nurse practitioner. I am in agreement with her documentation. The patient has ruled out using chest pain center protocol for ACS she is already had evaluation of her peripheral vessels showing a nonocclusive thrombus in the right popliteal area ends at this time will be further evaluated with a nuclear stress test to both look for ischemia and for evaluation of the ejection fraction. Medications and Allergies Active Medications: Active Medications Acetaminophen (Tylenol) 650 mg PO Q4H PRN PRN Reason: HEADACHE Last Admin: 01/03/18 08:19 Dose: 650 mg Non-Formulary Medication (Irbesartan-Hydrochlorothiazide [Irbesartan- Hydrochlorothiazide]) 1 tab PO DAILY IGOR Sertraline HCl (Zoloft) 100 mg PO DAILY IGOR Sodium Chloride (Ns Flush) 2 ml IV.FLUSH UNSCH PRN PRN Reason: FLUSH AFTER USING IV ACCESS Sodium Chloride (Ns Flush) 2 ml IV.FLUSH BID IGOR Last Admin: 01/03/18 08:20 Dose: 2 ml Sodium Chloride (Ns Flush) 2 ml IV.FLUSH PRN PRN PRN Reason: FLUSH AFTER USING IV ACCESS Allergies Allergy/AdvReac Type Severity Reaction Status Date / Time cortisone Allergy Unknown Muscle Pain Verified 12/09/17 22:39 Home Medications Medication Instructions Recorded Confirmed Type aspirin [Aspir-81] 81 mg PO DAILY 11/05/17 01/02/18 History atenolol 50 mg PO HS 11/05/17 01/03/18 History colestipol 1 g PO DAILY 11/05/17 01/02/18 History gabapentin 800 mg PO HS 11/05/17 01/02/18 History tizanidine 4 mg PO HS 11/05/17 01/02/18 History acetaminophen-codeine 1 tab PO TID PRN 11/26/17 01/02/18 History sertraline 100 mg PO DAILY 11/26/17 01/02/18 History irbesartan-hydrochlorothiazide 1 tab PO DAILY 01/03/18 01/03/18 History Physical Exam Vital signs: Vital Signs 01/02/18 17:48 01/02/18 19:10 01/02/18 20:21 Temperature 98.5 F Pulse Rate 75 68 Respiratory Rate 16 20 Blood Pressure 173/82 H 156/74 H Pulse Oximetry 96 96 96 01/02/18 23:00 01/03/18 02:17 01/03/18 03:44 Temperature 98.1 F 98.2 F Pulse Rate 62 72 54 L Respiratory Rate 20 18 16 Blood Pressure 137/75 164/95 H 150/78 H Pulse Oximetry 95 96 01/03/18 07:28 01/03/18 08:00 Temperature 98.0 F Pulse Rate 60 68 Respiratory Rate 16 Blood Pressure 173/79 H Pulse Oximetry 95 Intake & Output 01/02/18 01/03/18 01/03/18 18:59 06:59 18:59 Weight 81.647 kg 81.647 kg Other: # Voids 1 Date of Last Bowel Movement 01/02/18 Weight On Admission 81.647 kg Narrative: Well-nourished well-developed lady in no acute distress resting comfortably in bed Head normocephalic/atraumatic Eyes PERRLA EOMI sclera clear Mouth mucous membranes moist and well papillated no lesions (Patient complains of some slight blood from her nose over the last few days) evaluation appears to reveal normal nares Mouth mucous membranes moist and well papillated no lesions neck supple no JVD masses nodes or bruits chest patient is significantly scoliotic scoliotic with diminished breath sounds over the base of the right lung but no rales wheezes or rhonchi Cardiovascular reveals regular rhythm with no gallops rubs or murmurs Abdomen soft slightly tender in the midepigastrium but no guarding or rebound and no hepatosplenomegaly Extremities pulses are intact there is bilateral stasis and edema from the knee down. Results 01/02/18 20:00 01/02/18 20:00 Cardiac Enzymes 01/02/18 01/03/18 01/03/18 Range/Units 20:00 01:24 03:40 AST 27 (15-37) U/L CK-MB (CK-2) 4.5 H 4.2 H (0.5-3.6) ng/mL Troponin I Less than 0.02 L Less than 0.02 L Less than 0.02 L (0.02-0.05) ng/mL CBC 01/02/18 Range/Units 20:00 WBC 6.5 (4.0-11.0) th/mm3 RBC 4.58 (4.00-5.30) mil/mm3 Hgb 14.0 (11.6-15.3) gm/dL Hct 42.0 (35.0-46.0) % Plt Count 268 (150-450) th/mm3 Neut # (Auto) 3.7 (1.8-7.7) th/mm3 Lymph # (Auto) 2.3 (1.0-4.8) th/mm3 [place] # (Auto) 0.3 (0.0-0.9) th/mm3 Eos # (Auto) 0.1 (0.0-0.4) th/mm3 Baso # (Auto) 0.1 (0.0-0.2) th/mm3 Comprehensive Metabolic Panel 01/02/18 Range/Units 20:00 Sodium 140 (136-145) meq/L Potassium 4.0 (3.5-5.1) meq/L Chloride 105 (98-107) meq/L Carbon Dioxide 24.6 (21.0-32.0) meq/L BUN 15 (7-18) mg/dL Creatinine 0.77 (0.50-1.00) mg/dL Calcium 9.3 (8.5-10.1) mg/dL AST 27 (15-37) U/L ALT 37 (10-53) U/L Alkaline Phosphatase 73 (45-117) U/L Total Protein 7.8 (6.4-8.2) g/dL Albumin 3.9 (3.4-5.0) g/dL Intake and Output 01/02/18 01/03/18 01/03/18 22:59 06:59 14:59 Other: # Voids 1 Date of Last Bowel Movement 01/02/18 Weight 81.647 kg 81.647 kg Weight On Admission 81.647 kg - Imaging and Cardiology Imaging: Impressions Chest X-Ray 01/02/18 19:57 CONCLUSION: 1. Left basilar atelectasis. 2. Elevation of the right hemidiaphragm. Venous Doppler Study 01/02/18 19:58 CONCLUSION: 1. Nonocclusive thrombus within the right popliteal vein. Chest CTA 01/02/18 22:53 CONCLUSION: 1. Bibasilar patchy opacities could be atelectasis or infiltrates. 2. No evidence for pulmonary embolism. 3. Minimal coronary artery calcifications.
[2018-01-03] MEDS ORDERED: Regadenoson Inj 0.4 MG/5 ML Syringe IV.PUSH ONE (12:16)
--- NOTE | 2018-01-03 13:47 | NM ---
EXAM DATE: 01/03/2018 11:46 AM EDT AGE/SEX: 67 years / Female INDICATIONS:Angina. . Substernal chest pain. CLINICAL DATA: This is the patient's initial encounter. Patient reports that signs and symptoms have been present for 1 day and indicates a pain score of 7/10. MEDICAL/SURGICAL HISTORY: Hypertension. Hysterectomy. Appendectomy. Cholecystectomy. COMPARISON: . DOSE: 8.8 mCi Tc 99m Myoview at rest 26.3 mCi [id number] at stress 0.4 mg Lexiscan STRESS SYMPTOMS: Headache and dyspnea. EJECTION FRACTION: 68 % TECHNIQUE: The patient underwent pharmacologic stress with infusion of prescribed dose. Continuous ECG tracing was monitored during stress. Gated SPECT imaging was performed after stress and conventi onal SPECT imaging was performed at rest. The examination was performed on a SPECT/CT scanner, both attenuation and non-corrected datasets were reviewed. FINDINGS: Distribution: The maximum perfused segment at stress is in the lateral wall. Perfusion Study: The pattern of perfusion at stress is within normal limits. Gated Study: There are intact wall motion and wall thickening without hypokinetic or dyskinetic segm ents. The ejection fraction is calculated at 68%. RISK CATEGORY: Low (<1% Annual Motality Rate) CONCLUSION: 1. Negative examination. Electronically signed by: Garcia Duarte MD 01/03/2018 1:46 PM EDT
[2018-01-03] MEDS ORDERED: Acetaminophen/Codeine 300/30 MG Tablet PO PRN (13:59)
[2018-01-03 15:29] VITALS: BP 158/94; PULSE 86; RESP 16; TEMP 98.4
--- NOTE | 2018-01-03 20:13 | ECG ---
Date Performed: 01/02/2018 Time Performed: 20:18:41 PTAGE: 67 years EKG: SINUS BRADYCARDIA BORDERLINE ECG NO PREVIOUS TRACING DOCTOR: Jonathon Quintanilla Interpretating Date/Time 01/03/2018 20:12:20
--- NOTE | 2018-01-04 11:35 | ECG ---
Date Performed: 01/03/2018 Time Performed: 01:17:38 PTAGE: 67 years EKG: Sinus rhythm NORMAL ECG PREVIOUS TRACING : 01/02/2018 20.18 DOCTOR: Ranjan Li Interpretating Date/Time 01/04/2018 11:33:21
--- NOTE | 2018-01-04 11:35 | ECG ---
Date Performed: 01/03/2018 Time Performed: 03:41:09 PTAGE: 67 years EKG: Sinus rhythm NORMAL ECG PREVIOUS TRACING : 01/03/2018 01.17 DOCTOR: Ranjan Li Interpretating Date/Time 01/04/2018 11:33:13
--- NOTE | 2018-01-04 11:38 | TR ---
Date Performed: 01/03/2018 Time Performed: 12:29:28 DOCTOR: Ranjan Li DRUG LIST: CLINICAL HISTORY: REASON FOR TEST: Angina REASON FOR ENDING: OBSERVATION: CONCLUSION: Lexiscan stress test was performed under standard four minute protocol. Radionuclide was injected one minute prior to ending the test. No electrocardiographic abormalities were present to suggest ischemia. Nuclear imaging and interpretation are pending. COMMENTS:
== END 2018-01-03 16:35 | disposition home or self-care (01) ==
LOC: NEDA 17:40 → NEPC 17:40 → NEDA 01-03 02:14 → NEPFCDU 01-03 02:16
DX: R07.89 Other chest pain; R94.31 Abnormal electrocardiogram [ECG] [EKG]; I10 Essential (primary) hypertension; M19.90 Unspecified osteoarthritis, unspecified site; Z86.711 Personal history of pulmonary embolism; M54.9 Dorsalgia, unspecified; M81.0 Age-related osteoporosis without current pathological fracture; E11.9 Type 2 diabetes mellitus without complications; Z90.49 Acquired absence of other specified parts of digestive tract; M79.7 Fibromyalgia; K27.9 Peptic ulcer, site unspecified, unspecified as acute or chronic, without hemorrhage or perforation; Z90.710 Acquired absence of both cervix and uterus; Z83.3 Family history of diabetes mellitus; E78.5 Hyperlipidemia, unspecified; Z82.49 Family history of ischemic heart disease and other diseases of the circulatory system; G43.909 Migraine, unspecified, not intractable, without status migrainosus; I82.431 Acute embolism and thrombosis of right popliteal vein; J98.11 Atelectasis; G62.9 Polyneuropathy, unspecified; G89.29 Other chronic pain